=== PATIENT | male | born 1980 | race Caucasian/White ===

== ENCOUNTER 2021-08-28 18:10 | Emergency (ER) | payer OTHER ==
[~2021-08-28] VITALS: Ht 165.1 cm; Wt 93.2 kg
[2021-08-28 18:11] VITALS: BP 149/88
[2021-08-28] MEDS ORDERED: NO HOME MEDS (18:18)
[2021-08-28] MEDS ORDERED: bacitracin 15gm ointment TP ONE (18:35)
[2021-08-28] MEDS ORDERED: TETanus/Pertussis (Acell)/Diphther VAC/PF (Tdap-Adult) 0.5ml syringe IMVAC ONE (18:35)
== END 2021-08-28 19:03 ==
LOC: ER 18:10
DX: S00.81XA Abrasion of other part of head, initial encounter (principal); S60.512A Abrasion of left hand, initial encounter; S60.511A Abrasion of right hand, initial encounter; F10.129 Alcohol abuse with intoxication, unspecified; Z72.89 Other problems related to lifestyle; Z88.0 Allergy status to penicillin; Z20.3 Contact with and (suspected) exposure to rabies; V87.7XXA Person injured in collision between other specified motor vehicles (traffic), initial encounter; Y93.89 Activity, other specified; Y92.89 Other specified places as the place of occurrence of the external cause; Y99.8 Other external cause status; Y90.9 Presence of alcohol in blood, level not specified
CPT/HCPCS: 90471; 90715; 99283